=== PATIENT | female | born 1955 | race Caucasian/White ===

== ENCOUNTER 2016-06-28 13:10 | Inpatient (IN) ==
--- NOTE | 2016-06-27 21:22 | Discharge Summary ---
<Jackie Hayes - Last Filed: 06/27/16 21:20> Date of Encounter: 06/27/16 - Discharge Diagnosis (1) Arthritis of right hip Priority: Primary Status: Acute (2) HTN (hypertension) Priority: Secondary Status: Chronic Qualifiers: Hypertension type: essential hypertension Qualified Code(s): I10 - Essential (primary) hypertension (3) Chronic pain Priority: Secondary Status: Chronic Comments: Hold [place] 5/325. - Discharge Medications Home Medications: Aspirin Enteric Coated [Aspirin EC] 325 mg PO DAILY #21 tablet.dr 06/27/16 [Rx] OxyCODONE Immed Rel [Roxicodone 5 MG] 5 - 10 mg PO Q6HR PRN #40 tablet 06/27/16 [Rx] Calcium Carbonate [Calcium] 500 mg PO DAILY 06/28/16 [History] Cholecalciferol (D-3) [Vitamin D] 1,000 unit PO DAILY 06/28/16 [History] HYDROcodone/Acet 5/325 mg [[place] 5-325 mg] 1 tab PO Q6H PRN 06/28/16 [History] Losartan/Hydrochlorothiazide [Hyzaar 100-12.5 Tablet] 1 tab PO DAILY 06/28/16 [ History] Methocarbamol [Robaxin-750] 750 mg PO QID PRN 06/28/16 [History] Milk Thistle 150 mg PO DAILY 06/28/16 [History] Nabumetone [Relafen] 500 mg PO BID 06/28/16 [History] [place]-3 Fatty Acids [[place]-3] 100 mg PO DAILY 06/28/16 [History] TraZODone 50 mg PO HS 06/28/16 [History] Turmeric Root Extract [Turmeric] 500 mg PO DAILY 06/28/16 [History] Allergies/Adverse Reactions: Allergies No Known Allergies Allergy (Verified 06/28/16 14:32) Primary care physician: Stacey Johnston MD - Patient Status Disposition: Transfer Inpatient Rehab Fac Condition: Good - Discharge Instructions Follow Up With: Stacey Johnston MD [Primary Care Provider] - Yaya Antoine MD [Partnered Physician] - 07/27/16 9:15 am Jackie Hayes, MARGI [Physician Application Development Director] - 07/08/16 8:30 am Jackie Benavides CNP [Advanced Practice Nurse] - 08/12/16 11:00 am Diana Alvarenga CNP [Advanced Practice Nurse] - 09/02/16 10:30 am - Hospital Course Hospital course: Ms. Patrick is a 60 year old female - Time Spent with Patient Total time spent providing and/or coordinating discharge services: <AntoineYaya - Last Filed: 06/30/16 06:41> Date of Encounter: 06/30/16 Time of Encounter: 06:40 - Discharge Diagnosis (1) Arthritis of right hip Priority: Primary Status: Acute (2) Chronic pain Priority: Secondary Status: Chronic Qualifiers: Chronic pain type: other chronic pain Qualified Code(s): G89.29 - Other chronic pain (3) HTN (hypertension) Priority: Secondary Status: Chronic Qualifiers: Hypertension type: essential hypertension Qualified Code(s): I10 - Essential (primary) hypertension (4) Acute blood loss anemia Priority: Primary Status: Acute Primary care physician: Stacey Johnston MD - Patient Status Functional capacity at discharge: uses cane/walker Overall status at discharge: patient is progressing back to baseline - Hospital Course Hospital course: Ms. Patrick is a 60 year old female The patient had an uneventful postoperative course. They received antibiotics and physical therapy and were discharged in stable condition. There will follow -up in the office in 2 weeks. Aspirin DVT prophylaxis - Time Spent with Patient Total time spent providing and/or coordinating discharge services:
[2016-06-28] MEDS ORDERED: CeFAZolin Pre 2,000 MG/100 ML 2,000 MG/100 ML BAG IVPB ONE (13:41)
--- NOTE | 2016-06-28 13:59 | Anesthesia Evaluation PreOp ---
Date of Encounter: 06/28/16 Time of Encounter: 13:57 - Past History Planned Operation: right JOHN Cardiac History: HTN Pulmonary History: Denies Any Significant HX MENTAL HEALTH ORDERLY History: Denies Any Significant HX Other Medical History: Denies Any Significant HX Anesthesia History: No Prior Anesthetic Complications, Past Anesthesia (hernia and toe surgery) : No Alcohol Use: occasionally Drug use: none Medications and Allergies Aspirin Enteric Coated [Aspirin EC] 325 mg PO DAILY #21 tablet. 06/27/16 [Rx] OxyCODONE Immed Rel [Roxicodone 5 MG] 5 - 10 mg PO Q6HR PRN #40 tablet 06/27/16 [Rx] Allergies No Known Allergies Allergy (Unverified 12/05/15 08:57) - Meds/Allergy Pre-op Review Medications Reviewed: Yes Allergies Reviewed: Yes Beta Blockers on Current Med List: No Anesthesia Results - Labs Laboratory Tests 06/03/16 06/03/16 10:40 10:40 Hgb 13.0 Hct 38.3 Plt Count 190 Sodium 137 Potassium 4.0 BUN 9 Creatinine 0.58 - Imaging EKG: report reviewed (sinus jesus alberto) Anesthesia Exam Height: 1.65m Weight: 59kg NPO (# of Hours): 8 Pain Scale: 0 Pain Scale Used: Numeric (1 - 10) - HEENT Pupil (Motor): EOMI Mallampati: II Teeth: Normal Oral Opening: Greater than 3 - MENTAL HEALTH ORDERLY LOC: Oriented MENTAL HEALTH ORDERLY Motor: Normal RUE, Normal LUE, Normal RLE, Normal LLE, Normal Face MENTAL HEALTH ORDERLY Sensory: Normal: RUE, LUE, RLE, LLE, Face - Cardiac Rhythm: Regular Murmur: None - Pulmonary Breath Sounds: bilateral Clear Respiratory Effort: Symmetrical Anesthesia Assess/Plan ASA Score: 2 Modified Gentry Scale for Level of Consciousness: Cooperative, oriented, and tranquil Anesthetic Plan: General Monitoring Plan: Standard Monitors Recovery Plan: PACU (Discussed risks of GA with patient. Questions answered. Agrees to proceed. Will give po Tyleno and iv pepcid.)
[2016-06-28] MEDS ORDERED: Famotidine 20 MG/2 ML VIAL IVP ONE (14:09)
[2016-06-28] MEDS: Ringers Solution, Lactated 1,000 ML IVC SCH ×2 (14:25→18:30)
[2016-06-28] MEDS ORDERED: *HR* FentaNYL (PF) 100 MCG/2 ML VIAL ONE (17:10)
[2016-06-28] MEDS ORDERED: Dexamethasone 4 MG/ML VIAL ONE (17:10)
[2016-06-28] MEDS ORDERED: *HR* Midazolam HCl 2 MG/2 ML VIAL ONE (17:10)
[2016-06-28] MEDS ORDERED: Lidocaine -MPF 2% 2 ML VIAL ONE (17:10)
[2016-06-28] MEDS ORDERED: *HR* Propofol 200 MG/20 ML VIAL IVP ONE (17:10)
[2016-06-28] MEDS ORDERED: *HR* Succinylcholine 200 MG/10 ML VIAL IVP ONE (17:10)
[2016-06-28] MEDS ORDERED: Ondansetron 4 MG/2 ML VIAL ONE (17:10)
[2016-06-28] MEDS ORDERED: Lidocaine -MPF 4% 5 ML AMPUL ONE (17:12)
--- NOTE | 2016-06-28 17:58 | History & Physical Report ---
Date of Encounter: 06/28/16 Time of Encounter: 16:00 24 Hour HP Update - Instructions Instructions: If the History and Physical is less than 30 days old and was completed prior to A.M. admission and or procedure and has NOT been updated on calendar day of procedure please complete this update prior to performing procedure. - Update Patient reports changes in Medical Condition: No Changes in assessment/condition: No Changes in Medication: No Preop tests/diagnostics Reviewed: Yes Surgery Remains Indicated: Yes Consent for Planned Operative Procedure(s) Verified: Yes - Pre-Operative Checklist Preoperative Checklist Indicated: No Prophylactic Antibiotic Ordered: Yes Is VTE Prophylaxis Indicated?: Yes
[2016-06-28] MEDS ORDERED: *HR* Enoxaparin 30 MG/0.3 ML SYRINGE SQ SCH (18:00)
--- NOTE | 2016-06-28 18:00 | Orthopedic Operative Note ---
Date of procedure: 06/28/16 Pre-op diagnosis: Right hip arthritis Post-op diagnosis: same Procedure: Procedure: Right Total Hip Replacment Estimated blood loss: 200 cc Hardware: Biomet DM Cup: 50 G7 fin cup Femoral size 11 echo full profile lateralized stem Head: +0 head with Kadi Procedural Notes: Grade 4 arthritic changes femoral head acetabular socket. Operative procedure: The patient was brought to the operating room and placed on the operating room table. After general anesthesia was administered the patient was placed in the lateral decubitus position with the operative leg up. All pressure points were padded appropriately and the head was stabilized in the neutral position. The operative extremity was prepped and draped in the sterile surgical fashion patient received IV antibiotic prior to skin incision. A standard posterior approach is made to the operative hip, the incision was made through the skin and subcutaneous tissue hemostasis was obtained with Bovie cautery. Using careful sharp dissection the fascia was identified and incised exposing the external rotators. The external rotators were released off the greater trochanter and tagged with #2 FiberWire suture. The capsule was T'd open and the hip was brought into internal rotation. Patient noted to have grade 4 arthritic changes femoral head. The femoral neck cut was made at the appropriate level. An anterior capsulotomy was performed for the anterior retractor. Soft tissues removed from the acetabulum. Patient noted to have grade 4 arthritic changes acetabulum. Acetabulum was first reamed medially, and then reamed in 15 degrees of anteversion and 45 degrees off the horizontal. It was reamed up to the appropriate size 50 The appropriate-sized 50 acetabular cup was impacted in place in 15 degrees of anteversion and 45 degrees off the horizontal. This had good fit and fixation. The hip was brought back in to internal rotation and prepared with the box feeder followed by the canal finder followed by broaching process in 20 degrees anteversion. It was broached up to the appropriate size 11 time. Real stem was impacted in place. Trial reduction with a +0 head and Kadi gave excellent stability. The trials were removed and the real implants were impacted in place. The hip was reduced, patient had apparent equal leg lengths. The hip had excellent stability with forward flexion to 90 degrees adduction of 30 degrees and internal rotation of 60 degrees. The hip had no shuck. The hips after 2 minutes with a Betadine saline solution. It was irrigated out with 2 L of pulse irrigation. The external rotators were reattached to drill holes in the greater trochanter. Fascia was closed with a running #2 PDS suture. The deep tissue was irrigated and closed deep with #1 PDS suture superficially with 0 PDS suture and skin was closed with Dermabond and skin dany. The patient was placed in a sterile dressing and abduction pillow. The patient was extubated and transferred to the recovery room in stable condition. Anesthesia: GETA Surgeon: Yaya Antoine Gemologist: Jackie Hayes Condition: stable Disposition: PACU
[2016-06-28] MEDS ORDERED: Ketorolac 30 MG/ML VIAL ONE (18:08)
[2016-06-28] MEDS ORDERED: *HR* Morphine 10 MG/ML VIAL ONE (18:12)
[2016-06-28] MEDS ORDERED: *HR* HYDROmorphone 2 MG/ML SYRINGE ONE (18:24)
[2016-06-28] MEDS: *HR* HYDROmorphone (PF) 1 MG/ML SYRINGE IVP PRN ×4 (18:45→19:05)
[2016-06-28 19:05] LABS: Hematocrit 35.5 % (35.3-44.9)
[2016-06-28] MEDS: *HR* FentaNYL (PF) 100 MCG/2 ML VIAL IVP PRN ×2 (19:15→19:25)
--- NOTE | 2016-06-28 20:03 | Anesthesia Evaluation Post Op ---
Date of Encounter: 06/28/16 Time of Encounter: 20:03 - Vital Signs Vital Signs: Last Vital Signs Temp 98.1 F 06/28/16 19:30 Pulse 58 06/28/16 19:50 Resp 16 06/28/16 19:50 BP 110/74 06/28/16 19:50 Pulse Ox 94 L 06/28/16 19:50 - Lungs Lungs: Clear Ascult./Percussion - Airway Airway: Non-obstructed - Cardiovascular Regular Rate - Mental Status Mental Status: Alert & Oriented, Answers Appropriately - Pain Pain Scale: 2 - Nausea Vomiting Nausea Vomiting: Not Present - Hydration Hydration: Ice chips - Discharge PostOp Status: Transfer Patient to floor
[2016-06-28] MEDS ORDERED: Sennosides 8.6 MG TABLET PO PRN (20:22)
[2016-06-28] MEDS ORDERED: Ringers Solution, Lactated 1,000 ML IVC SCH (20:22)
[2016-06-28] MEDS ORDERED: Acetaminophen 325 MG TABLET PO PRN (20:22)
[2016-06-28] MEDS ORDERED: Temazepam 15 MG CAPSULE PO PRN (20:22)
[2016-06-28] MEDS ORDERED: *HR* OxyCODONE Immed Rel 5 MG TABLET PO PRN (20:22)
[2016-06-28] MEDS ORDERED: MOM Conc 10 ML UD.LIQ PO PRN (20:22)
[2016-06-28] MEDS ORDERED: Methocarbamol 750 MG TABLET PO PRN (20:22)
[2016-06-28] MEDS ORDERED: Naloxone 0.4 MG/ML INJ IVP PRN (20:22)
[2016-06-28] MEDS: traZODone 50 MG TABLET PO SCH ×2 (21:50→22:49)
[2016-06-28] MEDS: *HR* OxyCODONE Immed Rel 5 MG TABLET PO PRN (21:50)
[2016-06-28] MEDS: Ascorbic Acid 500 MG TABLET PO SCH (21:50)
[2016-06-28] MEDS: Ondansetron 4 MG/2 ML VIAL IVP PRN (22:50)
[2016-06-29] MEDS: ceFAZolin 2,000 MG in D5% in Water 100 ML IVPB SCH ×2 (00:03→08:15)
[2016-06-29] MEDS: *HR* HYDROmorphone (PF) 1 MG/ML SYRINGE IVP PRN ×3 (00:24→14:21)
[2016-06-29] MEDS: *HR* OxyCODONE Immed Rel 5 MG TABLET PO PRN ×5 (03:02→23:59)
[2016-06-29] MEDS: *HR* Enoxaparin 30 MG/0.3 ML SYRINGE SQ SCH ×2 (05:21→16:43)
--- NOTE | 2016-06-29 06:31 | Orthopedics Progress Note ---
Date of Encounter: 06/29/16 Time of Encounter: 06:31 - Assessment and Plan (1) Arthritis of right hip Current Visit: Yes Status: Acute (2) Chronic pain Current Visit: Yes Status: Chronic Qualifiers: Chronic pain type: other chronic pain Qualified Code(s): G89.29 - Other chronic pain (3) HTN (hypertension) Current Visit: Yes Status: Chronic Qualifiers: Hypertension type: essential hypertension Qualified Code(s): I10 - Essential (primary) hypertension Subjective Interval history: Patient was seen this morning doing well without complaints. Afebrile vital signs stable. Operative extremity: Neurovascularly intact Dressing clean dry and intact Calves nontender Assessment and plan: Continue with postoperative care Postop hematocrit 35 Objective Vital signs: Vital Signs Temp Pulse Resp BP Pulse Ox 06/29/16 04:00 97.4 F L 61 17 101/62 95 06/29/16 00:08 97.5 F L 69 16 96/61 97 06/28/16 22:20 98.3 F 71 14 100/73 100 06/28/16 21:20 98.1 F 59 14 106/64 98 06/28/16 20:37 97.2 F L 69 15 94/66 96 06/28/16 19:50 58 16 110/74 94 L 06/28/16 19:40 56 16 107/70 96 06/28/16 19:30 98.1 F 55 16 108/68 94 L 06/28/16 19:20 56 16 113/82 95 06/28/16 19:10 90 16 137/95 100 06/28/16 19:00 98.0 F 60 16 136/62 99 06/28/16 18:50 67 16 146/96 100 06/28/16 18:40 85 16 144/94 100 06/28/16 18:30 97.8 F 87 16 137/86 100 06/28/16 14:05 98.4 F 63 18 95/62 97 Intake and Output 06/28/16 06/28/16 06/29/16 15:59 23:59 07:59 Intake Total 1600 / 1600 300 / 300 Output Total 300 / 300 350 / 350 Balance 1300 / 1300 -50 / -50 Intake: IV Fluids 1600 / 1600 100 / 100 Lactated Ringers 1,000 ML 1600 / 1600 @ 25 mls/hr IVC .Q24H [facility] Rx#:[id number] Ancef 2,000 MG In 100 / 100 Dextrose 5% 100 ML @ 200 mls/hr IVPB Q8HR [facility] Rx#: [id number] Oral 200 / 200 Output: Urine 350 / 350 Estimated Blood Loss 300 / 300 Other: Weight 59.421 kg - Labs CBC & BMP: 06/28/16 18:50 - VTE Documentation of Mechanical Device: Venous foot pump, device Consult Discharge Plan - Plan Referrals: Stacey Johnston MD [Primary Care Provider] -
[2016-06-29] MEDS: Multivit/Ca/Min/Fe/FA 1 TAB TABLET PO SCH (08:08)
[2016-06-29] MEDS: hydroCHLOROthiazide 25 MG TABLET PO SCH (08:08)
[2016-06-29] MEDS: Ascorbic Acid 500 MG TABLET PO SCH ×2 (08:09→16:43)
[2016-06-29] MEDS: Cholecalciferol (D-3) 1,000 UNIT TABLET PO SCH (08:09)
[2016-06-29] MEDS: Ondansetron 4 MG/2 ML VIAL IVP PRN ×2 (08:15→15:46)
[2016-06-29] MEDS: OMEGA PO SCH (08:23)
[2016-06-29] MEDS: MILK THISTLE 150 MG PO SCH (08:23)
[2016-06-29] MEDS: FATTY ACIDS PO SCH (08:23)
[2016-06-29] MEDS: (Turmeric Root Extract [Turmeric] 500 MG) PO SCH (08:23)
[2016-06-29] MEDS ORDERED: NON-FORMULARY MEDICATION 1 EACH EACH (Losartan/Hydrochlorothiazide [Hyzaar 100-12.5 Tablet PO SCH (09:00)
[2016-06-29 09:05] LABS: Hematocrit 33.5 % (35.3-44.9); Hemoglobin 10.9 g/dL (11.5-15.4)
[2016-06-29 09:18] LABS: BUN/Creatinine Ratio 19 (6-26); Blood Urea Nitrogen 12 mg/dL (7-20); Calcium 8.6 mg/dL (8.6-10.8); Carbon Dioxide 27 mEq/L (19-29); Chloride 100 mEq/L (98-109); Glucose 120 mg/dL (70-99); Osmolality,Calculated 281 (280-300); Sodium 135 mEq/L (136-145); eGFR For African Americans > 60 (> 60); eGFR For Non-African Americans > 60 (> 60)
[2016-06-29] MEDS: traZODone 50 MG TABLET PO SCH (19:49)
[2016-06-30] MEDS: *HR* OxyCODONE Immed Rel 5 MG TABLET PO PRN ×3 (03:58→13:14)
[2016-06-30] MEDS: *HR* Enoxaparin 30 MG/0.3 ML SYRINGE SQ SCH (05:34)
[2016-06-30 06:10] LABS: Hematocrit 26.9 % (35.3-44.9)
[2016-06-30 06:15] LABS: Hemoglobin 9.1 g/dL (11.5-15.4)
[2016-06-30 06:27] LABS: BUN/Creatinine Ratio 14 (6-26); Blood Urea Nitrogen 8 mg/dL (7-20); Calcium 7.9 mg/dL (8.6-10.8); Carbon Dioxide 27 mEq/L (19-29); Chloride 102 mEq/L (98-109); Glucose 97 mg/dL (70-99); Osmolality,Calculated 282 (280-300); Potassium 3.6 mEq/L (3.5-4.5); Sodium 137 mEq/L (136-145); eGFR For African Americans > 60 (> 60); eGFR For Non-African Americans > 60 (> 60)
--- NOTE | 2016-06-30 06:42 | Orthopedics Progress Note ---
Date of Encounter: 06/30/16 Time of Encounter: 06:41 - Assessment and Plan (1) Arthritis of right hip Current Visit: Yes Status: Acute (2) Chronic pain Current Visit: Yes Status: Chronic Qualifiers: Chronic pain type: other chronic pain Qualified Code(s): G89.29 - Other chronic pain (3) HTN (hypertension) Current Visit: Yes Status: Chronic Qualifiers: Hypertension type: essential hypertension Qualified Code(s): I10 - Essential (primary) hypertension (4) Acute blood loss anemia Current Visit: Yes Status: Acute Subjective Interval history: Patient was seen this morning doing well without complaints. Afebrile vital signs stable. Operative extremity: Neurovascularly intact Dressing clean dry and intact Calves nontender Assessment and plan: Continue with postoperative care Hemoglobin 9.1 discharged today Objective Vital signs: Vital Signs Temp Pulse Resp BP Pulse Ox 06/30/16 04:00 99.1 F 88 17 111/66 94 L 06/30/16 00:00 99.0 F 75 17 111/66 98 06/29/16 19:00 99.1 F 77 17 111/68 95 06/29/16 15:18 98.3 F 108 18 98/60 94 L 06/29/16 10:57 98.0 F 72 16 94/57 99 06/29/16 07:14 98.6 F 82 16 91/58 99 Intake and Output 06/29/16 06/29/16 06/30/16 15:59 23:59 07:59 Intake Total 240 / 240 490 / 490 450 / 450 Output Total 800 / 800 300 / 300 Balance -560 / -560 190 / 190 450 / 450 Intake: Oral 240 / 240 490 / 490 450 / 450 Output: Urine 800 / 800 300 / 300 Other: Meal Lunch Dinner Percent of Meal Consumed 100% 35% # Voids 1 - Labs CBC & BMP: 06/30/16 05:42 06/30/16 05:42 Labs: Abnormal lab results Hgb 9.1 g/dL (11.5-15.4) L D 06/30/16 05:42 Hct 26.9 % (35.3-44.9) L 06/30/16 05:42 Calcium 7.9 mg/dL (8.6-10.8) L 06/30/16 05:42 - VTE Documentation of Mechanical Device: Venous foot pump, device Consult Discharge Plan - Plan Referrals: Stacey Johnston MD [Primary Care Provider] - Yaya Antoine MD [Partnered Physician] - 07/27/16 9:15 am Jackie Hayes, PAC [Physician Zipper Setter Chainstitch] - 07/08/16 8:30 am Jackie Benavides CNP [Advanced Practice Nurse] - 08/12/16 11:00 am Diana Alvarenga CNP [Advanced Practice Nurse] - 09/02/16 10:30 am
[2016-06-30] MEDS: hydroCHLOROthiazide 25 MG TABLET PO SCH (08:01)
[2016-06-30] MEDS: Cholecalciferol (D-3) 1,000 UNIT TABLET PO SCH (08:35)
[2016-06-30] MEDS: Multivit/Ca/Min/Fe/FA 1 TAB TABLET PO SCH (08:35)
[2016-06-30] MEDS: Ascorbic Acid 500 MG TABLET PO SCH (08:35)
[2016-06-30] MEDS: OMEGA PO SCH (08:36)
[2016-06-30] MEDS: MILK THISTLE 150 MG PO SCH (08:36)
[2016-06-30] MEDS: (Turmeric Root Extract [Turmeric] 500 MG) PO SCH (08:36)
[2016-06-30] MEDS: FATTY ACIDS PO SCH (08:36)
[2016-06-30 12:12] VITALS: BP 105/69
== END 2016-06-30 15:20 | DRG 470 ==
LOC: SAMDAY 13:10 → 3NENU 20:19
PROVIDERS: ADMIT Orthopaedic Surgery; ATTEND Orthopaedic Surgery